=== PATIENT | male | born 1980 | race Two or more races ===

== ENCOUNTER 2021-09-08 18:25 | Emergency (ER) | payer OTHER ==
[~2021-09-08] VITALS: Ht 177.8 cm; Wt 127.0 kg
[2021-09-08 23:23] VITALS: BP 114/91
[2021-09-08] MEDS ORDERED: CIPR750T3 PO (23:51)
[2021-09-08] MEDS ORDERED: CIPR0.3S4 OT (23:51)
== END 2021-09-08 23:53 | disposition home or self-care (01) ==
LOC: ER 18:25
DX: H61.011 Acute perichondritis of right external ear (principal); H60.91 Unspecified otitis externa, right ear